=== PATIENT | female | born 1970 | race African-American/Black ===

== ENCOUNTER 2020-04-14 10:55 | Emergency (ER) | payer OTHER ==
[2020-04-14] MEDS ORDERED: IBUPROFEN 800 MG TAB PO ONE (11:10)
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
[2020-04-14 11:21] VITALS: BP 137/74
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
== END 2020-04-14 12:58 | disposition home or self-care (01) ==
LOC: ED 10:55
DX: S39.012A Strain of muscle, fascia and tendon of lower back, initial encounter (principal); S16.1XXA Strain of muscle, fascia and tendon at neck level, initial encounter; Z79.1 Long term (current) use of non-steroidal anti-inflammatories (NSAID); Z79.899 Other long term (current) drug therapy; V49.59XA Passenger injured in collision with other motor vehicles in traffic accident, initial encounter; Y93.89 Activity, other specified; Y92.410 Unspecified street and highway as the place of occurrence of the external cause; Y99.8 Other external cause status
CPT/HCPCS: 72040; 72100